=== PATIENT | male | born 1935 | race Two or more races ===

== ENCOUNTER 2021-05-18 21:49 | Emergency (ER) | payer MEDICARE, MEDICAID ==
[~2021-05-18] VITALS: Ht 172.7 cm; Wt 65.8 kg
--- NOTE | 2021-05-18 22:06 | NUR ---
PT BIBPA C/O ALOC. PT BREATHING EVENLY AND UNLABORED.PT NOT ANSWERING QUESTIONS. PT SKIN WARM, DRY, AND INTACT. LEFT AC 20G INITATED. PT ATTACHED TO MONITOR AND POX. GIVEN BLANKET AND CALL LIGTH WITHIN REACH
--- NOTE | 2021-05-18 22:19 | NUR ---
BLOOD OBTAINED AND SENT TO LAB
[2021-05-18] MEDS ORDERED: LIDOCAINE 2% JEL UROJET 10 ML MM ONE ×2 (22:21→22:30)
--- NOTE | 2021-05-18 22:30 | NUR ---
URINE SENT TO LAB
--- NOTE | 2021-05-18 22:33 | NUR ---
TAKEN TO RADIOLOGY
[2021-05-18 22:35] LABS: BASOPHILS % (AUTO) 0.7 % (0.0-2.0); HEMATOCRIT 31 % (39-51); HEMOGLOBIN 10.4 g/dL (13.5-17.5); LYMPHOCYTES # (AUTO) 1.6 K/uL (0.8-4.8); MEAN CORPUSCULAR HGB CONC 33 g/dl (31.0-36.0); MEAN CORPUSCULAR VOLUME 98 fL (80-96); MONOCYTES # (AUTO) 0.4 K/uL (0.1-1.30); MONOCYTES % (AUTO) 9.2 % (2.0-12.0); NEUTROPHILS # (AUTO) 2.1 K/uL (1.8-8.9); NEUTROPHILS % (AUTO) 48.1 % (43.0-81.0); PLATELET COUNT (AUTO) 221 K/uL (150-450); RED BLOOD CELL COUNT(AUTO) 3.17 MIL/uL (4.5-6.0); WHITE BLOOD COUNT (AUTO) 4.3 K/uL (4.3-11.0)
[2021-05-18 22:40] LABS: CALCIUM, SERUM 8.5 mg/dL (8.5-10.1); CARBON DIOXIDE 27 mmol/L (21-32); CHLORIDE 108 mmol/L (98-107); CREATININE 1.4 mg/dL (0.6-1.3); GLUCOSE 127 mg/dL (74-106); POTASSIUM 3.7 mmol/L (3.5-5.1); SODIUM SERUM 142 mmol/L (136-145); UREA NITROGEN, BLOOD 30 mg/dL (7-18)
[2021-05-18 22:45] LABS: ALANINE AMINOTRANSFERASE 19 U/L (12-78); ALBUMIN 3.2 g/dL (3.4-5.0); ALKALINE PHOSPHATASE 74 U/L (46-116); ASPARTATE AMINOTRANSFERASE 15 U/L (15-37); BILIRUBIN,DIRECT 0.2 mg/dL (0.0-0.2); BILIRUBIN,TOTAL 0.6 mg/dL (0.2-1.0); TOTAL PROTEIN, SERUM 6.9 g/dL (6.4-8.2)
[2021-05-18 22:57] LABS: BILIRUBIN,URINE NEGATIVE (NEGATIVE); COLOR,URINE YELLOW (YELLOW); LEUKOCYTE ESTERASE ,URINE NEGATIVE (NEGATIVE); NITRITE, URINE NEGATIVE (NEGATIVE); PROTEIN,URINE NEGATIVE (NEGATIVE); UGLUCOSE NEGATIVE (NEGATIVE); UROBILINOGEN,URINE 0.2 EU/dL (0.2)
--- NOTE | 2021-05-19 00:59 | NUR ---
ATTEMPT TO GIVE REPORT TO FACILITY, NO ANSWER
--- NOTE | 2021-05-19 01:15 | NUR ---
ATTEMPTED TO GIVE REPORT, NO ANSWER
--- NOTE | 2021-05-19 01:32 | NUR ---
ATTEMPTED TO GIVE REPORT. NO ANSWER
--- NOTE | 2021-05-19 01:56 | NUR ---
SPOKE TO RE HORAN AT [facility]
--- NOTE | 2021-05-19 02:03 | NUR ---
CALLED [facility] FOR BLS PICKUP. ETA 45MIN
--- NOTE | 2021-05-19 02:46 | NUR ---
GAVE REPORT TO EMS.
[2021-05-19 02:50] VITALS: BP 134/65
== END 2021-05-19 02:45 ==
LOC: ER 21:53
DX: F29 Unspecified psychosis not due to a substance or known physiological condition (principal); R41.82 Altered mental status, unspecified; G93.41 Metabolic encephalopathy; E11.9 Type 2 diabetes mellitus without complications; R94.31 Abnormal electrocardiogram [ECG] [EKG]
CPT/HCPCS: 36415; 70450; 71045; 71250; 80048; 80076; 81003; 85025; 93005; 99285; J3490

== ENCOUNTER 2022-01-18 17:45 | Emergency (ER) | payer MEDICARE, OTHER ==
[~2022-01-18] VITALS: Ht 165.1 cm; Wt 41.3 kg
--- NOTE | 2022-01-18 17:56 | NUR ---
TO ER BED 10, BIBPA [facility] RT[facility]MENT HOME C/O L FOREHEAD BRUISE & SWELLING. ALSO C/O L HAND AND LEFT ELBOW SKIN TEAR, AAOX1, HX OF DEMENTIA, CONNECTED TO MONITOR, MADE COMFORTABLE
--- NOTE | 2022-01-18 18:43 | NUR ---
PT TAKEN TO CT
--- NOTE | 2022-01-18 19:01 | NUR ---
URINE SAMPLE COLLECTED AND SENT
[2022-01-18 19:32] LABS: CALCIUM, SERUM 8.8 mg/dL (8.5-10.1); CARBON DIOXIDE 24 mmol/L (21-32); CHLORIDE 109 mmol/L (98-107); CREATININE 1.5 mg/dL (0.6-1.3); GLUCOSE 108 mg/dL (74-106); POTASSIUM 4.3 mmol/L (3.5-5.1); SODIUM SERUM 140 mmol/L (136-145); UREA NITROGEN, BLOOD 44 mg/dL (7-18)
[2022-01-18 19:44] LABS: BASOPHILS % (AUTO) 0.4 % (0.0-2.0); EOSINOPHILS % (AUTO) 2.3 % (0.0-6.0); HEMATOCRIT 29 % (39-51); LYMPHOCYTES # (AUTO) 1.3 K/uL (0.8-4.8); LYMPHOCYTES % (AUTO) 22.9 % (20.0-44.0); MEAN CORPUSCULAR HGB CONC 34 g/dl (31.0-36.0); MEAN CORPUSCULAR VOLUME 97 fL (80-96); MONOCYTES # (AUTO) 0.5 K/uL (0.1-1.30); MONOCYTES % (AUTO) 9.1 % (2.0-12.0); NEUTROPHILS # (AUTO) 3.8 K/uL (1.8-8.9); NEUTROPHILS % (AUTO) 65.3 % (43.0-81.0); PLATELET COUNT (AUTO) 226 K/uL (150-450); RED BLOOD CELL COUNT(AUTO) 3.01 MIL/uL (4.5-6.0); WHITE BLOOD COUNT (AUTO) 5.8 K/uL (4.3-11.0)
[2022-01-18] MEDS ORDERED: IV NS 0.9% 500 ML BAG IV ONE (20:30)
[2022-01-18] MEDS ORDERED: TDAP [DIPH/PERTUSSIS/TET] 0.5 ML VIAL IM ONE (20:30)
[2022-01-18 20:34] LABS: BILIRUBIN,URINE NEGATIVE (NEGATIVE); COLOR,URINE YELLOW (YELLOW); LEUKOCYTE ESTERASE ,URINE NEGATIVE (NEGATIVE); NITRITE, URINE NEGATIVE (NEGATIVE); PH,URINE 5.5 (5.0-8.0); PROTEIN,URINE NEGATIVE (NEGATIVE); UGLUCOSE NEGATIVE (NEGATIVE); UROBILINOGEN,URINE 0.2 EU/dL (0.2)
[2022-01-18 20:46] LABS: BACTERIA,URINE None seen /HPF (None Seen); SQUAMOUS EPITHELIAL CELL,UR Few /HPF (None Seen); WBC,URINE 0-2 /HPF (0-3)
--- NOTE | 2022-01-18 21:02 | NUR ---
PER [facility] PT WILL BE TRANSPORTED IN 30 TO 40 MINS BLS BACK TO FACILITY.
[2022-01-18 21:34] VITALS: BP 135/87
--- NOTE | 2022-01-18 21:34 | NUR ---
[facility] AT BEDSIDE FOR PT TRANSPORT TO FACILITY. REPORT GIVEN TP JOSE ALBERTO AT THE FACILITY.
--- NOTE | 2022-01-18 21:34 | NUR ---
IV removed. Catheter intact and site benign. Pressure and 4x4 applied to site. No bleeding noted.
== END 2022-01-18 21:34 ==
LOC: ER 17:48
DX: S00.83XA Contusion of other part of head, initial encounter (principal); F03.90 Unspecified dementia, unspecified severity, without behavioral disturbance, psychotic disturbance, mood disturbance, and anxiety; F41.9 Anxiety disorder, unspecified; G93.40 Encephalopathy, unspecified; Z98.890 Other specified postprocedural states; W19.XXXA Unspecified fall, initial encounter; Y93.89 Activity, other specified; Y92.89 Other specified places as the place of occurrence of the external cause; Y99.8 Other external cause status
CPT/HCPCS: 36415; 70450; 71045; 80048; 81001; 85025; 85730; 90471; 90715; 96360; 99285; A6403; J7040

== ENCOUNTER 2022-03-02 18:30 | Inpatient (IN) | payer MEDICARE, OTHER ==
[~2022-03-02] VITALS: Ht 157.5 cm; Wt 39.5 kg
[2022-03-02] MEDS ORDERED: DOCU-141 PO (18:40)
[2022-03-02] MEDS ORDERED: MULT-447 PO (18:40)
[2022-03-02] MEDS ORDERED: TOLT4CAP PO (18:40)
[2022-03-02] MEDS ORDERED: BUSP5TAB3 PO (18:40)
[2022-03-02] MEDS ORDERED: LISI40TA13 PO (18:40)
[2022-03-02] MEDS ORDERED: FAMO20TA8 PO (18:40)
[2022-03-02] MEDS ORDERED: FERR325T23 PO (18:40)
[2022-03-02] MEDS ORDERED: ACET-868 PO (18:40)
[2022-03-02] MEDS ORDERED: OLAN10TA3 PO (18:40)
[2022-03-02] MEDS ORDERED: TRAZ-182 PO (18:40)
--- NOTE | 2022-03-02 18:43 | NUR ---
[facility] UNIT [facility] HOME, C/O L FOREHEAD BUMP UNWITNESSED FALL PER FACILITY.
--- NOTE | 2022-03-02 18:50 | NUR ---
IV ESTABLISHED L AC 20G. LABS DRAWN AND COLLECTED AT BEDSIDE. CONVERTED TO SALINE LOCK.
[2022-03-02 19:44] LABS: CARBON DIOXIDE 27 mmol/L (21-32); CHLORIDE 109 mmol/L (98-107); CREATININE 1.4 mg/dL (0.6-1.3); GLUCOSE 101 mg/dL (74-106); POTASSIUM 4.7 mmol/L (3.5-5.1); SODIUM SERUM 145 mmol/L (136-145); UREA NITROGEN, BLOOD 43 mg/dL (7-18)
[2022-03-02 19:58] LABS: ALANINE AMINOTRANSFERASE 16 U/L (12-78); ALBUMIN 3.4 g/dL (3.4-5.0); ALKALINE PHOSPHATASE 104 U/L (46-116); ASPARTATE AMINOTRANSFERASE 11 U/L (15-37); BILIRUBIN,DIRECT 0.1 mg/dL (0.0-0.2); BILIRUBIN,TOTAL 0.4 mg/dL (0.2-1.0); TOTAL PROTEIN, SERUM 7.7 g/dL (6.4-8.2)
[2022-03-02 20:00] LABS: BASOPHILS % (AUTO) 0.7 % (0.0-2.0); EOSINOPHILS % (AUTO) 6.9 % (0.0-6.0); HEMATOCRIT 29 % (39-51); HEMOGLOBIN 9.7 g/dL (13.5-17.5); LYMPHOCYTES # (AUTO) 1.3 K/uL (0.8-4.8); LYMPHOCYTES % (AUTO) 29.8 % (20.0-44.0); MEAN CORPUSCULAR HGB CONC 33 g/dl (31.0-36.0); MEAN CORPUSCULAR VOLUME 99 fL (80-96); MONOCYTES # (AUTO) 0.4 K/uL (0.1-1.30); MONOCYTES % (AUTO) 9.1 % (2.0-12.0); NEUTROPHILS # (AUTO) 2.3 K/uL (1.8-8.9); NEUTROPHILS % (AUTO) 53.5 % (43.0-81.0); PLATELET COUNT (AUTO) 264 K/uL (150-450); RED BLOOD CELL COUNT(AUTO) 2.98 MIL/uL (4.5-6.0); WHITE BLOOD COUNT (AUTO) 4.3 K/uL (4.3-11.0)
--- NOTE | 2022-03-02 20:08 | NUR ---
PT BEING TRANSPORTED TO CT SCAN VIA [facility]
--- NOTE | 2022-03-02 20:18 | NUR ---
[facility]
--- NOTE | 2022-03-02 20:58 | NUR ---
COVID ANTIGEN SWAB COLLECTED AND SENT TO LAB
--- NOTE | 2022-03-02 21:02 | NUR ---
MRSA SWAB COLLECTED AND SENT TO LAB. PATIENT'S BELONGINGS LIST DONE.
[2022-03-02] MEDS ORDERED: Z GUARD REMEDY 4 OZ OINT TP PRN (22:00)
[2022-03-02] MEDS ORDERED: MAGNESIUM HYDROXIDE 30 ML UDC PO PRN (22:00)
[2022-03-02] MEDS ORDERED: IV NS 0.9% 1,000 ML IV PRN (22:00)
[2022-03-02] MEDS ORDERED: MAG HYDROX/AL HYDROX/SIMETH 30 ML UDC PO PRN (22:00)
[2022-03-02] MEDS ORDERED: ONDANSETRON HCL/PF 4 MG/2 ML VIAL IVP PRN (22:00)
[2022-03-02] MEDS ORDERED: ACETAMINOPHEN 325 MG TABLET PO PRN ×2 (22:00)
--- NOTE | 2022-03-02 23:00 | NUR ---
REPORT GIVEN TO KRISTAN
--- NOTE | 2022-03-02 23:01 | NUR ---
RN notes Received report from ER nurse RE Vazquez. Primary nurse is aware and informed.
--- NOTE | 2022-03-02 23:22 | NUR ---
PT TRANSPORTED TO ROOM 326-1 ON COMPUTER INSTALLER PER ACLS PROTOCOL WITHOUT INCIDENT
--- NOTE | 2022-03-02 23:40 | NUR ---
RN opening notes Pt is arrived at the unit with ACLS protocol. Pt is alert and orientedX1. Pt speaks Nepali and able to make needs known. IV site at L forearm# 20 is clean, intact and flushes well. Skin assessment is done and preformed. Pictures are taken and placed at Pt's chart. Reorient Pt to the room and the use of call light. Admission orders received. Safety precautions is maintained. Bed at low position, brakes locked, side rails upX3, hob elevated and call light is within reach. Will continue to monitor.
[2022-03-02] MEDS: TRAZODONE 50 MG TABLET PO SCH (23:43)
[2022-03-03] VITALS: BP 141/62
[2022-03-03 02:36] VITALS: BP 129/80
[2022-03-03 04:00] VITALS: BP 149/92
--- NOTE | 2022-03-03 06:48 | NUR ---
RN CLOSING NOTES PT. RESTING IN BED, ABLE TO MAKE NEEDS KNOWN. ON RA AND TOLERATING WELL. NO SOB NOTED NO S/SX OF RESPIRATORY DISTRESS NOTED.. ALL NEEDS MET. PT. KEPT CLEAN AND DRY. IV ACCESS INTACT. SAFETY PRECAUTIONS IN PLACED CALL LIGHT WITHIN REACH. WILL ENDORSE TO ONCOMING SHIFT FOR [place].
[2022-03-03 07:56] LABS: BASOPHILS % (AUTO) 0.7 % (0.0-2.0); EOSINOPHILS % (AUTO) 5.5 % (0.0-6.0); HEMATOCRIT 29 % (39-51); HEMOGLOBIN 9.6 g/dL (13.5-17.5); LYMPHOCYTES # (AUTO) 1.2 K/uL (0.8-4.8); LYMPHOCYTES % (AUTO) 29.5 % (20.0-44.0); MEAN CORPUSCULAR HGB CONC 33 g/dl (31.0-36.0); MEAN CORPUSCULAR VOLUME 98 fL (80-96); MONOCYTES # (AUTO) 0.3 K/uL (0.1-1.30); MONOCYTES % (AUTO) 8.5 % (2.0-12.0); NEUTROPHILS # (AUTO) 2.3 K/uL (1.8-8.9); NEUTROPHILS % (AUTO) 55.8 % (43.0-81.0); PLATELET COUNT (AUTO) 236 K/uL (150-450); RED BLOOD CELL COUNT(AUTO) 2.98 MIL/uL (4.5-6.0); WHITE BLOOD COUNT (AUTO) 4.1 K/uL (4.3-11.0)
[2022-03-03 08:00] VITALS: BP 140/56
--- NOTE | 2022-03-03 08:04 | NUR ---
WOUND CARE CONSULT: PT PRESENTS CACHECTIC WITH AREAS OF SKIN DISCOLORATION AND PRESACRAL SCARRING, PRESENTON ADMISSION. RECOMMENDATIONS MADE FOR SKIN PROTECTION. DISCUSSED WITH NURSING STAFF. MD IN AGREEMENT WITH PLAN OF CARE. PT IS ON [facility] ISOFLEX LOW AIRLOSS BED.
--- NOTE | 2022-03-03 08:08 | NUR ---
SALICYLIC ACID BLENDER OPENING NOTE Patient in bed, asleep. A/Ox 1. On room air, breathing evenly and unlabored. No SOB or s/s of distress noted. IV access on Left arm #20G infusing NS at 75 ml/hr. On tele monitoring showing SR, HR 64. Safety precautions in place: bed in low, locked position; siderails up x 2; call light within reach. Will continue to monitor.
[2022-03-03 08:26] LABS: CALCIUM, SERUM 8.3 mg/dL (8.5-10.1); CREATININE 1.2 mg/dL (0.6-1.3); MAGNESIUM 2.3 mg/dL (1.8-2.4); PHOSPHORUS 3.7 mg/dL (2.5-4.9); POTASSIUM 3.9 mmol/L (3.5-5.1)
--- NOTE | 2022-03-03 08:58 | NUR ---
SS consult received over the weekend for CACHEXIA, FROM [facility]. SW will follow up at a later time.
[2022-03-03] MEDS: FERROUS SULFATE (325 MG) 325 MG/TAB TABLET PO SCH (09:23)
[2022-03-03] MEDS: TOLTERODINE 2 MG CAP.SR PO SCH (09:23)
[2022-03-03] MEDS: busPIRone 5 MG TABLET PO SCH (09:24)
[2022-03-03] MEDS: DOCUSATE SODIUM 100 MG CAPSULE PO SCH (09:24)
[2022-03-03] MEDS: OLANZAPINE 5 MG TABLET PO SCH ×2 (09:24→17:05)
[2022-03-03] MEDS: FAMOTIDINE (20 MG) 20 MG TABLET PO SCH ×2 (09:24→21:00)
[2022-03-03 15:14] LABS: THYROID STIMULATING HORMONE 3.14 uIU/mL (0.358-3.74)
[2022-03-03 16:00] VITALS: BP 130/62
--- NOTE | 2022-03-03 16:46 | NUR ---
SS Note: SW received consult for Cachexia, found [facility] at [facility]. Pt. is alert and oriented x1, SW is not able to interview pt. FIORDALIZA contacted son [Breezy, ] and he stated that pt. resides at [facility] [[phone]]. SW called facility and spoke with Debbie, she confirmed that pt. is a resident there. Debbie stated that no one witnessed the fall, but he is supportive at facility. Son also provided number to pt.s adoption social worker [Tejal [phone]]. SW called and left voicemail. SW will follow-up regarding Ombudsman Report once theres more information.
[2022-03-03] MEDS: ENSURE ENLIVE CHOC 237 ML CAN PO SCH (17:13)
--- NOTE | 2022-03-03 19:26 | NUR ---
RIPRAP PLACER CLOSING NOTE Patient in bed, awake. A/Ox 1. Stable on room air, breathing evenly and unlabored. No SOB or s/s of distress noted. IV access on Left arm #20G infusing NS at 75 ml/hr. On tele monitoring showing SR, HR on the 80's. Patient kept clean and dry. Due meds given. Safety precautions in place: bed in low, locked position; siderails up x 2; call light within reach. Will endorse to night monitor nurse for [place].
[2022-03-03 20:00] VITALS: BP 151/71
--- NOTE | 2022-03-03 22:14 | NUR ---
TELERN RECEIVED REPORT FROM VAISHNAVI GRIMALDO. PATIENT, AWAKE. IV OUT , WILL TRY TO RESTART ONCE PATIENT CALMS DOWN. WILL GIVE DUE MEDS WITH APPLE SAUCE. TO CONTINUE.
[2022-03-03] MEDS: TRAZODONE 50 MG TABLET PO SCH (22:17)
[2022-03-04] VITALS: BP 148/83
[2022-03-04 04:00] VITALS: BP 149/98
[2022-03-04] MEDS: IV 1/2NS 1000 ML 1,000 ML IV SCH ×3 (04:54→23:14)
--- NOTE | 2022-03-04 06:00 | NUR ---
MSRN RESTARTED HL LEFT FA 22 GAUGE WITH GOOD BLOOD RETURN. 1/2 NS RESTARTED AT 75CC/HR. TENDS TO BE COMBATIVE.
--- NOTE | 2022-03-04 06:57 | NUR ---
MSRN BLOOD DRAWN WENT BACK TO SLEEP. IVF INFUSING WELL
[2022-03-04 06:59] LABS: BASOPHILS % (AUTO) 0.6 % (0.0-2.0); EOSINOPHILS % (AUTO) 5.7 % (0.0-6.0); HEMATOCRIT 26 % (39-51); LYMPHOCYTES # (AUTO) 1.1 K/uL (0.8-4.8); MEAN CORPUSCULAR HGB CONC 34 g/dl (31.0-36.0); MEAN CORPUSCULAR VOLUME 98 fL (80-96); MONOCYTES # (AUTO) 0.4 K/uL (0.1-1.30); MONOCYTES % (AUTO) 9.4 % (2.0-12.0); NEUTROPHILS # (AUTO) 2.6 K/uL (1.8-8.9); NEUTROPHILS % (AUTO) 59.3 % (43.0-81.0); PLATELET COUNT (AUTO) 231 K/uL (150-450); RED BLOOD CELL COUNT(AUTO) 2.69 MIL/uL (4.5-6.0); WHITE BLOOD COUNT (AUTO) 4.4 K/uL (4.3-11.0)
[2022-03-04 07:34] LABS: ALBUMIN 2.9 g/dL (3.4-5.0); BILIRUBIN,TOTAL 0.4 mg/dL (0.2-1.0); CALCIUM, SERUM 8.2 mg/dL (8.5-10.1); CREATININE 1.2 mg/dL (0.6-1.3); PHOSPHORUS 3.7 mg/dL (2.5-4.9); POTASSIUM 3.6 mmol/L (3.5-5.1); TOTAL PROTEIN, SERUM 6.7 g/dL (6.4-8.2)
--- NOTE | 2022-03-04 07:55 | NUR ---
ACID CRANE OPERATOR OPENING NOTE Patient in bed, asleep. A/Ox 1. On room air, breathing evenly and unlabored. No SOB or s/s of distress noted. IV access on Left forearm #22G infusing 1/2 NS at 75 ml/hr. On tele monitoring showing SR, HR 98. Safety precautions in place: bed in low, locked position; siderails up x 2; call light within reach. Will continue to monitor.
[2022-03-04 08:00] VITALS: BP 142/64
[2022-03-04] MEDS: busPIRone 5 MG TABLET PO SCH (08:33)
[2022-03-04] MEDS: ENSURE ENLIVE CHOC 237 ML CAN PO SCH ×2 (08:33→16:12)
[2022-03-04] MEDS: DOCUSATE SODIUM 100 MG CAPSULE PO SCH (08:33)
[2022-03-04] MEDS: LORAZEPAM INJ 2 MG/ML VIAL IV PRN ×2 (08:34→22:25)
[2022-03-04] MEDS: TOLTERODINE 2 MG CAP.SR PO SCH (08:34)
[2022-03-04] MEDS: FAMOTIDINE (20 MG) 20 MG TABLET PO SCH ×2 (08:34→20:54)
[2022-03-04] MEDS: OLANZAPINE 5 MG TABLET PO SCH ×2 (08:34→16:12)
[2022-03-04] MEDS: FERROUS SULFATE (325 MG) 325 MG/TAB TABLET PO SCH (08:34)
[2022-03-04 12:00] VITALS: BP 102/54
[2022-03-04 16:00] VITALS: BP 126/74
--- NOTE | 2022-03-04 18:55 | NUR ---
CORPORATE OPERATIONS COMPLIANCE MANAGER CLOSING NOTE Patient in bed, awake moving around in bed; bed alarm kept on. A/Ox 1, confused. Stable on room air, breathing evenly and unlabored. No SOB or s/s of distress noted. IV access on Left forearm #22G infusing 1/2 NS at 75 ml/hr. On tele monitoring showing SR, HR 96. Due meds given. Patient kept clean and dry. Safety precautions maintained: bed in low, locked position; siderails up x 2; call light within reach. Will endorse to greaser helper nurse for [place].
--- NOTE | 2022-03-04 19:00 | NUR ---
in bed confused noted pulling his clothes off pucking at the gauze that has his IV site wrapped moving about in the bed throwing his legs over the rails resp even and unlabored
[2022-03-04 20:00] VITALS: BP 139/64
[2022-03-04] MEDS: TRAZODONE 50 MG TABLET PO SCH (21:36)
[2022-03-05] VITALS (7 sets, daily range): BP systolic 93–171; BP diastolic 50–100
--- NOTE | 2022-03-05 04:27 | NUR ---
RN CLOSING NOTES: alert /orientated to self when repositioned or offered water he would stretch his arm as to hit me in the face. no comprehension when i tried to explain not to do this asp recaution when eating and drinkling no problems noted not gotten OOB being seen by PT noted he was restless and throwing his legs over the rails and twisting about in the bed ATIVAN IV given slept soundly on the telmonitor he is sinur rhythm thru the night incontinent urine clear in color assisted the ACCOUNTS CLERK with turning and cleaning the patient
[2022-03-05] MEDS: LORAZEPAM INJ 2 MG/ML VIAL IV PRN (06:31)
--- NOTE | 2022-03-05 07:59 | NUR ---
RN OPENING NOTE PATIENT IN BED RESTING, AWAKE, A/O X1, CONFUSED. NO S/S OF PAIN NOTED AT THIS TIME. ON ROOM AIR, NO DISTRESS OR SHORTNESS OF BREATH NOTED. IV ACCESS LFA #22G, INTACT, PATENT AND FLUSHING WELL. PATIENT WITH EXTERNAL FINANCIAL SERVICES OFFICER WITH CURRENT READING OF SR, NO CARDIAC DISTRESS NOTED. FALL AND SAFETY MEASURES IN PLACE, BED ALARM ON, BED IN LOW AND LOCK POSITION, CALL LIGHT AND TABLE WITHIN EASY REACH, SIDE RAILS UP X2. WILL CONTINUE TO MONITOR
[2022-03-05] MEDS: DOCUSATE SODIUM 100 MG CAPSULE PO SCH (09:23)
[2022-03-05] MEDS: FAMOTIDINE (20 MG) 20 MG TABLET PO SCH ×2 (09:23→21:53)
[2022-03-05] MEDS: busPIRone 5 MG TABLET PO SCH (09:23)
[2022-03-05] MEDS: FERROUS SULFATE (325 MG) 325 MG/TAB TABLET PO SCH (09:23)
[2022-03-05] MEDS: OLANZAPINE 5 MG TABLET PO SCH ×2 (09:23→17:45)
[2022-03-05] MEDS: ENSURE ENLIVE CHOC 237 ML CAN PO SCH ×2 (09:23→17:45)
[2022-03-05] MEDS: TOLTERODINE 2 MG CAP.SR PO SCH (09:23)
[2022-03-05] MEDS: IV 1/2NS 1000 ML 1,000 ML IV SCH ×2 (13:12→21:54)
--- NOTE | 2022-03-05 18:48 | NUR ---
RN CLOSING NOTE PATIENT IN BED RESTING, SLEEPING, AWAKENS TO VERBAL STIMULI. PATIENT SLEPT MOST OF THE SHIFT. A/O X1, CONFUSED. NO S/S OF PAIN NOTED AT THIS TIME. ON ROOM AIR, NO DISTRESS OR SHORTNESS OF BREATH NOTED. IV ACCESS LFA #22G, INTACT, PATENT AND FLUSHING WELL. PATIENT WITH EXTERNAL COLLATERAL CLERK WITH CURRENT READING OF SR AND HR OF 88. NO CARDIAC DISTRESS NOTED. FALL AND SAFETY MEASURES IN PLACE, BED ALARM ON, BED IN LOW AND LOCK POSITION, CALL LIGHT AND TABLE WITHIN EASY REACH, SIDE RAILS UP X2. WILL ENDORSE TO TAKE OUT WAITRESS.
[2022-03-05] MEDS: TRAZODONE 50 MG TABLET PO SCH (21:54)
[2022-03-06 04:00] VITALS: BP 139/84
--- NOTE | 2022-03-06 06:11 | NUR ---
EXERCISE PHYSIOLOGY PROFESSOR NOTES AWAKE & RESPONSIVE. STILL CONFUSED. NOT IN ANY DISTRESS. NO SOB NOTED. NO S/SX OF ANY PAIN OR DISCOMFORT AT THIS TIME. ON TEL SR @ 87 WITH OCC PVCS WITH IVF INFUSING WELL. AM CARE DONE. MONITORED ACCORDINGLY. CALL LIGHT WITHIN REACH. BED IN LOWEST POSITION. SR UP X 3 WITH BED ALARM ON FOR SAFETY. WILL ENDORSE TO NEXT SHIFT.
[2022-03-06 08:00] VITALS: BP 146/66
--- NOTE | 2022-03-06 08:04 | NUR ---
RN OPENING NOTE PATIENT IN BED RESTING, AWAKE, A/O X1, CONFUSED. NO S/S OF PAIN NOTED AT THIS TIME. ON ROOM AIR, NO DISTRESS OR SHORTNESS OF BREATH NOTED. IV ACCESS LFA #22G, INTACT, PATENT AND FLUSHING WELL. PATIENT WITH EXTERNAL PHARMACEUTICAL DEVELOPMENT TECHNICIAN WITH CURRENT READING OF SR AND HR OF 65. NO CARDIAC DISTRESS NOTED. FALL AND SAFETY MEASURES IN PLACE, BED ALARM ON, BED IN LOW AND LOCK POSITION, CALL LIGHT AND TABLE WITHIN EASY REACH, SIDE RAILS UP X2. WILL CONTINUE TO MONITOR
[2022-03-06] MEDS: FAMOTIDINE (20 MG) 20 MG TABLET PO SCH (09:40)
[2022-03-06] MEDS: TOLTERODINE 2 MG CAP.SR PO SCH (09:40)
[2022-03-06] MEDS: DOCUSATE SODIUM 100 MG CAPSULE PO SCH (09:40)
[2022-03-06] MEDS: busPIRone 5 MG TABLET PO SCH (09:40)
[2022-03-06] MEDS: FERROUS SULFATE (325 MG) 325 MG/TAB TABLET PO SCH (09:40)
[2022-03-06] MEDS: OLANZAPINE 5 MG TABLET PO SCH (09:40)
[2022-03-06] MEDS: ENSURE ENLIVE CHOC 237 ML CAN PO SCH (09:41)
[2022-03-06] MEDS: IV 1/2NS 1000 ML 1,000 ML IV SCH (09:56)
[2022-03-06 12:00] VITALS: BP 96/76
--- NOTE | 2022-03-06 16:45 | NUR ---
HISTOPATH TECH NOTE PATIENT DISCHARGE IN STABLE CONDITION. A/O X1. V/S TAKEN, STABLE AND RECORDED. NO IV ACCESS. SKIN ASSESSMENT DONE, PICTURES TAKEN. NAME ARM BAND REMOVED. ALL BELONGINGS CHECKED AND SIGNED. HEALTH TEACHING AND DISCHARGE INSTRUCTIONS GIVEN TO NURSE AT [facility] AND VERBALIZED UNDERSTANDING. PATIENT LEFT UNIT VIA GURNEY WITH NO SIGNS OF DISTRESS, ACCOMPANIED BY PARAMEDICS. REPORT WAS GIVEN TO NURSE AT [facility] ([facility]) VIA PHONE. FAMILY INFORMED OF PATIENT DISCHARGE, PER GIN INSPECTOR NOTES SOTO DAMON WAS CALLED AND IS IN AGREEMENT WITH PATIENT PLACEMENT. CHARGE NURSE AWARE OF DISCHARGE.
== END 2022-03-06 17:00 | DRG 73 ==
LOC: ER 18:36 → MED 22:24 → TELE 22:32
PROVIDERS: ADMIT Internal Medicine; ATTEND Internal Medicine
DX: G90.8 Other disorders of autonomic nervous system (principal); G93.41 Metabolic encephalopathy; N17.0 Acute kidney failure with tubular necrosis; E87.0 Hyperosmolality and hypernatremia; E46 Unspecified protein-calorie malnutrition; E86.0 Dehydration; I70.0 Atherosclerosis of aorta; Z20.822 Contact with and (suspected) exposure to COVID-19; F41.9 Anxiety disorder, unspecified; R45.1 Restlessness and agitation; Z93.1 Gastrostomy status; Z79.899 Other long term (current) drug therapy; S00.03XA Contusion of scalp, initial encounter; W19.XXXA Unspecified fall, initial encounter; Y92.9 Unspecified place or not applicable; F29 Unspecified psychosis not due to a substance or known physiological condition; F03.90 Unspecified dementia, unspecified severity, without behavioral disturbance, psychotic disturbance, mood disturbance, and anxiety; F32.A Depression, unspecified; Z86.19 Personal history of other infectious and parasitic diseases; E88.09 Other disorders of plasma-protein metabolism, not elsewhere classified
CPT/HCPCS: 36415; 70450-TC; 71045-TC; 80048-TC; 80053-TC; 80076-TC; 82728-TC; 83540-TC; 83605-TC; 83735-TC; 84100-TC; 84439-TC; 84443-TC; 84484-TC; 85025-TC; 87040-TC; 87081-TC; 93307-TC; 93880-TC; 97112-TC; 97530-TC; C9803; G0378; J2060; J3490; J7030